=== PATIENT | female | born 1995 | race Caucasian/White ===

== ENCOUNTER 2019-10-27 13:36 | Outpatient (CLI) | payer OTHER, SELFPAY ==
--- NOTE | 2019-10-27 14:12 | DI.US.S_ITS ---
PROCEDURE: US OB LIMITED INDICATIONS: vaginal bleeding OUTSIDE/PRIOR DATING DATA: Last menstrual period (LMP): 03/04/2019. LMP-based estimated date of delivery (SURY): 12/09/2019. First dating scan (date and location): 10/27/2019. No prior exams. Estimated date of delivery (SURY) from first dating scan: Unknown. TECHNIQUE: Real-time scanning was performed of the fetus, with image documentation. COMPARISON: None. FINDINGS: A single living intrauterine gestation is present. Presentation: Vertex. Placenta: Placental position is fundal posterior, without previa. Amniotic fluid index: 17.6 cm, normal range is 5-24 cm. heart rate: 162 beats per minute. Maternal cervical canal: 4.7 cm long. Normal lower limit is 2.5 cm. Estimated gestational age from initial scan: 33 weeks 6 days. IMPRESSION: 1. Pinto living intrauterine at 33 weeks 6/7 days based on LMP. 2. Normal placenta and amniotic fluid. CHARMAINE 17.6 cm. 3. Normal cervix. Dictated by: Bobby Wright M.D. on 10/27/2019 at 17:01 Approved by: Bobby Wright M.D. on 10/27/2019 at 17:05
[2019-10-27 14:55] LABS: RBC Urine None Seen (0-5/HPF)
[2019-10-27 14:57] LABS: Appearance Urine UA CLEAR; Bilirubin Urine UA NEGATIVE (NEGATIVE); Color Urine UA YELLOW; Glucose Urine UA NEGATIVE (Negative); Ketones Urine UA NEGATIVE (NEGATIVE); Leukocyte Esterase Urine UA NEGATIVE (NEGATIVE); Nitrite Urine UA NEGATIVE (Negative); Occult Blood Urine UA NEGATIVE (Negative); Protein Urine UA NEGATIVE (Negative); Specific Gravity Urine UA <=1.005 (1.000-1.035); Urobilinogen Urine UA 0.2 E.U./dL (0.2)
[2019-10-27 15:22] LABS: Bacteria Urine Few (2-10); Culture Indicated Urine Cult Not Indicated; Squamous Epithelial Cell Urine 5-10 /HPF (0-5/HPF); WBC Urine 0-1/HPF (0-5/HPF)
--- NOTE | 2019-10-27 15:32 | PM.OBTRLD ---
Visit Information Visit Information Date of evaluation: 10/27/19 Primary OB Provider: Marcy Hein On-call OB Provider: Mary Weiss Reason for Evaluation: Yes other Comments/Additional reasons for admission: Patient is 33 weeks and noticed some dark red blood with wiping after using the bathroom this morning. Denies abdominal pain, contractions or leaking of fluid. Baby has been moving well. Last intercourse was reportedly a week ago. She has transferred care from the [facility] to Dr. Hein and has seen her once. No known placenta previa or other complications. Vital Signs Vital Signs: Temperature 36.4? blood pressure 102/59 heart rate 89 PFSH Medical History Frequent UTI (Acute) Heart murmur (Acute ~2019) Kidney infection (Acute) Family History Mother Mitral valve prolapse Grandfather Alcoholic Grandfather Alcoholic Sister Twin Social History marital status: education level: college (some college) occupational status: unemployed Smoking Status: Never smoker second hand exposure: No substance use type: does not use Objective Labs Labs: Laboratory Results - last 24 hr 10/27/19 14:30 Urine Color Yellow Urine Appearance Clear Urine pH 7.0 Ur Specific [place] <=1.005 Urine Protein Negative Urine Glucose (UA) Negative Urine Ketones Negative Urine Occult Blood Negative Urine Nitrate Negative Urine Bilirubin Negative Urine Urobilinogen 0.2 Ur Leukocyte Esterase Negative Urine RBC None seen Urine WBC 0-1/hpf Ur Squamous Epith Cells 5-10 /hpf H Urine Bacteria Few (2-10) H Ur Culture Indicated? Cult not indicated Evaluation Evaluation Baseline heart rate: 140 Variability: Moderate (11-25) monitor accelerations: Present monitor decelerations: Absent Category of Tracing: I Laboratory results: Laboratory Tests 10/27/19 14:30 Urine Color Yellow Urine Appearance Clear Urine pH 7.0 Ur Specific [place] <=1.005 Urine Protein Negative Urine Glucose (UA) Negative Urine Ketones Negative Urine Occult Blood Negative Urine Nitrate Negative Urine Bilirubin Negative Urine Urobilinogen 0.2 Ur Leukocyte Esterase Negative Urine RBC None seen Urine WBC 0-1/hpf Ur Squamous Epith Cells 5-10 /hpf H Urine Bacteria Few (2-10) H Ur Culture Indicated? Cult not indicated Diagnosis, Plan/Disposition Final Diagnosis (1) 33 weeks gestation of : Current Visit: No Status: Acute (2) Vaginal bleeding during , antepartum: Current Visit: No Status: Acute Plan/Disposition Plan: Patient is a 24 year old at 33+4 weeks with a small amount of dark vaginal bleeding with wiping this morning. She had a small amount with wiping again in the center after arrival. Last intercourse a week ago. NST reactive. US showed normal fluid, normal posterior placenta without previa or evidence to suggest abruption. UA negative. Patient denied abdominal pain or contractions and otherwise felt well. Placenta abruption felt unlikely. Patient was advised pelvic rest until she follows up in clinic. Also advised to return to the center immediately for increased bleeding. OB Disposition: home
== END 2019-10-27 15:44 | disposition home or self-care (01) ==
LOC: LABOR 15:22 → OB 10-30 09:55
PROVIDERS: Family Medicine; PCP Obstetrics & Gynecology; Visit Provider Obstetrics & Gynecology
DX: O46.93 Antepartum hemorrhage, unspecified, third trimester (principal); O36.8130 Decreased fetal movements, third trimester, not applicable or unspecified; Z3A.33 33 weeks gestation of pregnancy
CPT/HCPCS: 59025; 76815; 76830; 81001; G0378; G0379

== ENCOUNTER → 2019-11-07 07:14 | Outpatient (CLI) | payer OTHER, SELFPAY ==
[2019-11-07 08:42] LABS: Glucose Fasting Gestational 80 mg/dL (76-95)
[2019-11-07 10:08] LABS: Glucose 1 Hour Gest 137 mg/dL (76-180)
[2019-11-07 10:55] LABS: Glucose 2 Hour Gest 129 mg/dL (76-155)
[2019-11-07 10:56] LABS: Glucose Tol Interp,Gestational INTERPRETATION
[2019-11-07 11:50] LABS: Glucose 3 Hour Gest 102 mg/dL (76-140)
== END ==
PROVIDERS: PCP Obstetrics & Gynecology; Visit Provider Obstetrics & Gynecology
DX: Z34.03 Encounter for supervision of normal first pregnancy, third trimester (principal)
CPT/HCPCS: 36415; 82951; 82952

== ENCOUNTER → 2019-11-12 10:23 | Outpatient (CLI) | payer OTHER, SELFPAY ==
[2019-11-13 07:57] LABS: Strep Grp B PCR NEG for Grp B Strep
== END ==
PROVIDERS: PCP Obstetrics & Gynecology; Visit Provider Obstetrics & Gynecology
DX: Z34.03 Encounter for supervision of normal first pregnancy, third trimester (principal); Z3A.35 35 weeks gestation of pregnancy
CPT/HCPCS: 87653

== ENCOUNTER → 2019-12-12 08:01 | Outpatient (CLI) | payer OTHER, SELFPAY ==
--- NOTE | 2019-12-12 08:03 | DI.US.S_ITS ---
PROCEDURE: US OB BIOPHYSICAL PROFILE INDICATIONS: BPP OUTSIDE/PRIOR DATING DATA: Last menstrual period (LMP): 03/04/19. LMP-based estimated date of delivery (SURY): 12/09/19. First dating scan (date and location): This study. TECHNIQUE: Real-time scanning was performed of the fetus for biophysical profile, with image documentation. Color and pulse Doppler interrogation was also performed of the umbilical artery near its insertion into the placenta. Endovaginal scanning: Not needed COMPARISON: None. FINDINGS: General: A single living intrauterine gestation is present. Presentation: Vertex Placenta: Placental position is fundal, without previa. Amniotic fluid index: 16.0 cm, normal range is 5-24 cm. heart rate: 133 beats per minute. Estimated gestational age from LMP: The 40 weeks 3 days. Biophysical profile: 8 of 8 possible points Tone: 2 points. Movement: 2 points. Respiration: 2 points. Largest pocket of fluid: 2 points. IMPRESSION: Biophysical profile 8 of 8 possible points. Term gestation. Fundal placenta, vertex presentation. Amniotic fluid volume currently is normal. Dictated by: Cliff Contreras M.D. on 12/12/2019 at 10:29 Approved by: Cliff Contreras M.D. on 12/12/2019 at 10:45
== END ==
PROVIDERS: Referring Provider Obstetrics & Gynecology; Visit Provider Obstetrics & Gynecology
DX: Z34.03 Encounter for supervision of normal first pregnancy, third trimester (principal); Z3A.40 40 weeks gestation of pregnancy
CPT/HCPCS: 76819

== ENCOUNTER 2019-12-15 21:53 | Outpatient (CLI) | payer OTHER, SELFPAY ==
--- NOTE | 2019-12-16 08:58 | P.TNLD_ITS ---
Visit Information Visit Information Date of evaluation: 12/15/19 Primary OB Provider: Marcy Hein Reason for Evaluation: Yes rule out labor Comments/Additional reasons for admission: Patient is a 24yo @40+4 repo rting contractions q3, scant brown mucus, no LOF, copious movement. Patient has had an otherwise uncomplicated . Vital Signs Vital Signs: 106/65, HR 80 PFSH Medical History Chicken pox (Resolved ~1998) Frequent UTI (Acute ~2013) Heart murmur (Acute ~2018) Kidney infection (Acute) Family History Mother Mitral valve prolapse Grandfather Alcoholic Grandfather Alcoholic Sister Twin Social History marital status: education level: college occupational status: unemployed Smoking Status: Never smoker second hand exposure: No substance use type: does not use Review of Systems Constitutional Constitutional: Reports system reviewed and no additional complaints, except as documented Genitourinary Genitourinary: Reports as per HPI Evaluation Evaluation Baseline heart rate: 130 Variability: Average (6-10) monitor accelerations: Present monitor decelerations: Early Uterine Contraction Intensity: Moderate Category of Tracing: I Cervical dilation (cm): 0 Cervical effacement (%): 50 Diagnosis, Plan/Disposition Plan/Disposition Plan: Patient in latent labor, discharged home with reassuring status and precautions. Patient to keep scheduled appointment in AM. OB Disposition: home
== END 2019-12-15 22:55 | disposition home or self-care (01) ==
LOC: LABOR 23:03 → OB 12-16 08:18
PROVIDERS: Referring Provider Obstetrics & Gynecology; Visit Provider Obstetrics & Gynecology
DX: O48.0 Post-term pregnancy (principal); Z3A.40 40 weeks gestation of pregnancy
CPT/HCPCS: 59025; G0378; G0379

== ENCOUNTER 2019-12-16 19:05 | Inpatient (IN) | payer OTHER, SELFPAY ==
[2019-12-16 20:49] VITALS: BP 112/61
[2019-12-16] MEDS: DINOPROSTONE VAG (CERVIDIL) 10 MG VAG (21:06)
[2019-12-16 21:13] LABS: Add Manual Diff / Slide Review NO; Basophils Absolute Auto 100 /uL (0-100); Basophils Percent Auto 0.6 % (0-2); Eosinophils Absolute Auto 100 /uL (0-450); Hemoglobin 12.3 g/dL (12.0-16.0); Lymphocytes Absolute Auto 1600 /uL (1100-4500); Lymphocytes Percent Auto 15.2 % (25-40); Mean Corpuscular Volume 94.2 fL (80-100); Monocytes Absolute Auto 900 /uL (0-900); Monocytes Percent Auto 8.8 % (3-14); Neutrophils Absolute Auto 7800 /uL (1500-7000); Neutrophils Percent Auto 74.4 % (50-75); Platelet Count 285 X10^3/uL (150-400); Red Blood Cell Count 3.72 X10^6/uL (4.0-5.2); Red Cell Distribution Width 14.2 % (11.6-14.8); White Blood Cell Count 10.4 X10^3/uL (4.5-11.0)
[2019-12-16] MEDS: MORPHINE 10 MG/ML INJ IM (23:25)
[2019-12-17] MEDS: ZOLPIDEM 5 MG TABLET PO (01:26)
--- NOTE | 2019-12-17 08:28 | PM.OBHP.1 ---
OB HPI Date/Time Date of admission: 12/16/19 Date Patient Seen: 12/17/19 Time Patient Seen: 08:20 History of Present Condition Chief complaint: Obs : 1 Para: 0 Estimated Date of Delivery: 12/17/19 Estimated Gestational Age (weeks): 40 Narrative: Neha Courtney is a 24 year old @40+5 on admission, now 40+6 admitted for postdates induction in the setting of several days of latent labor. The patient reports that she has been debbie q3-5 for several days, with occasional scant brown discharge but no flores VB, no LOF, good movement, and no other symptoms obstetrical or otherwise. She has had a complicated by late transfer of care from the [employer] and by an unexplained vaginal bleed at 34 weeks. She is otherwise healthy with no contributory agricultural engineering technician, medical, or surgical history. She reports that she broke her water and was leaking clear fluid at approx 4AM, and had a cervidil overnight until its spontaneous expulsion at approx 4 AM. Indications Indication for induction OB: post dates History of Present care: good care, number of visits (14 visits) and pounds weight gain (35) Dating criteria: LMP confirmed by 1st trimester US Ultrasounds: normal mid trimester US Obstetrical complications: none Medical complications: none Preadmission Labs Blood type: O (+) positive -: Antibody screen: negative, Cystic fibrosis screen: positive (FOB tested and negative), GBS status: negative, HBsAG: negative, HIV: negative and RPR/VDLR: negative -: Chlamydia screen: not detected and Gonorrhea screen: not detected -: Rubella: immune and Varicella: immune Integrated screen: negative/negative Narrative: Passed 3 hr GTT Evaluation Evaluation Baseline heart rate: 130 Variability: Moderate (11-25) monitor accelerations: Present monitor decelerations: Absent Cervical dilation (cm): 3 Cervical effacement (%): 90 station: -1 Laboratory results: Laboratory Tests 12/16/19 12/16/19 20:15 20:15 WBC 10.4 RBC 3.72 L Hgb 12.3 Hct 35.0 L MCV 94.2 MCH 33.0 MCHC 35.0 RDW 14.2 Plt Count 285 Neut % (Auto) 74.4 Lymph % (Auto) 15.2 L [place] % (Auto) 8.8 Eos % (Auto) 1.0 L Baso % (Auto) 0.6 Neut # (Auto) 7800 H Lymph # (Auto) 1600 [place] # (Auto) 900 Eos # (Auto) 100 Baso # (Auto) 100 Blood Type O Positive Antibody Screen Negative [facility] Medical History Chicken pox (Resolved ~1998) Frequent UTI (Acute ~2013) Heart murmur (Acute ~2018) Kidney infection (Acute) Family History Mother Mitral valve prolapse Grandfather Alcoholic Grandfather Alcoholic Sister Twin Social History marital status: education level: college occupational status: unemployed Smoking Status: Never smoker second hand exposure: No substance use type: does not use Meds Home Medications and Allergies Home Medications Medication Instructions Recorded Confirmed Type prenat.vits,olga,[id number] 1 tab PO DAILY 10/21/19 12/16/19 History Allergies Allergy/AdvReac Type Severity Reaction Status Date / Time Latex, Natural Rubber Allergy Severe Rash and Verified 10/21/19 08:52 Burning to mucosa Sulfa (Sulfonamide Allergy Severe Migraines Verified 10/21/19 08:51 Antibiotics) and full body rashes Review of Systems Constitutional Constitutional: Reports system reviewed and no additional complaints, except as documented Cardiovascular Cardiovascular: Reports system reviewed; no additional complaints, except as documented Respiratory Respiratory: Reports system reviewed and no additional complaints, except as documented Gastrointestinal Gastrointestinal: Reports system reviewed and no additional complaints, except as documented Genitourinary Genitourinary: Reports system reviewed and no additional complaints, except as documented Exam Vital Signs (past 8 hours): 112/61, HR 88, afebrile Const General: cooperative, healthy appearing, comfortable and other (breathing through regular contractions) Resp Effort & Inspection: normal respiratory effort Auscultation: clear to auscultation bilaterally Cardio Rate: regular rate Rhythm: regular rhythm GI Palpation: soft External Female Exam: external appearance normal and other (leaking clear amniotic fluid) Other: cervical exam deferred until after epidural Objective Labs Result Diagrams: 12/16/19 20:15 Labs: Laboratory Results - last 24 hr 12/16/19 12/16/19 20:15 20:15 WBC 10.4 RBC 3.72 L Hgb 12.3 Hct 35.0 L MCV 94.2 MCH 33.0 MCHC 35.0 RDW 14.2 Plt Count 285 Neut % (Auto) 74.4 Lymph % (Auto) 15.2 L [place] % (Auto) 8.8 Eos % (Auto) 1.0 L Baso % (Auto) 0.6 Neut # (Auto) 7800 H Lymph # (Auto) 1600 [place] # (Auto) 900 Eos # (Auto) 100 Baso # (Auto) 100 Blood Type O Positive Antibody Screen Negative Assessment and Plan Assessment and Plan Assessment and Plan narrative: This patient presented for cervical ripening overnight, and is having regular contractions, though spaced. She will receive an epidural shortly, and then be started on low dose pitocin per protocol. Anticipate vaginal delivery. Reassuring and maternal status. -continues montoring, toco - VS per protocol
--- NOTE | 2019-12-17 09:36 | PM.AN.REGBLK ---
Regional Block Pre-procedure Procedure: Continuous Lumbar Epidural for L&D Attending OB provider: Marcy HOWELL/CHANTEL narrative: term labor, no complications Hx: No personal or family history of anesthesia problems. ASA Class: II Labs: Hct 35.0 % (36-46) L 12/16/19 20:15 Plt Count 285 X10^3/uL (150-400) 12/16/19 20:15 Medications: Current Medications Generic Name Dose Route Start Last Admin Trade Name Freq PRN Reason Stop Dose Admin Lactated Ringer's 1,000 mls @ 100 mls/hr 12/16/19 19:15 Lactated Ringers IV CONT YE Lactated Ringer's 1,000 mls @ 100 mls/hr 12/17/19 08:30 Lactated Ringers IV CONT YE Oxytocin/Lactated Ringer's 30 unit in 500 mls @ 1 mls/hr 12/17/19 08:30 Oxytocin Premix IV TITRATE [facility] Protocol 1 MILLIUNIT/MIN Metoclopramide HCl 10 mg 12/17/19 08:28 Reglan IV NOW PRN Nausea And Vomiting Ondansetron HCl 4 mg 12/16/19 21:41 Zofran IV Q6HR PRN Nausea And Vomiting Zolpidem Tartrate 5 mg 12/16/19 19:14 12/17/19 01:26 Ambien PO 5 mg BEDTIME PRN Administration Sleep Allergies: Allergies Allergy/AdvReac Type Severity Reaction Status Date / Time Latex, Natural Rubber Allergy Severe Rash and Verified 10/21/19 08:52 Burning to mucosa Sulfa (Sulfonamide Allergy Severe Migraines Verified 10/21/19 08:51 Antibiotics) and full body rashes Procedure Insertion date: 12/17/19 Insertion time: 08:40 Interspace: L2-3 Patient position: sitting Needle: 18 gauge Hustead (27g Pencan through Hustead for CSE. Clear CSF, 1mL 0.25% bupiv MPF) Loss of resistance with: saline MICHA at (cm): 3 Catheter placed at SKIN (cm): 9 Catheter in SPACE (cm): 6 Initial Medications TEST DOSE time: 08:41 TEST DOSE: 1.5% lidocaine with epinephrine 1:200k (mL): 3 BOLUS DOSE med: 0.125% bupivacaine with fentanyl 10 mcg/mL Infusion INFUSION: 0.125% bupivacaine and with fentanyl 2 mcg/mL Initial rate (mL/hr): 8 Post-procedure Anesthesia time START: 08:31 Anesthesia time END: 11:25 Post-procedure Anesthesia Assessment: Yes CV function: HR/BP stable, Yes Resp function: RR/sat/airway adequate, Yes Pain control adequate and Yes Nausea & vomiting absent
[2019-12-17] MEDS: LACTATED RINGERS 1,000 ML 100 ML IV (09:40)
[2019-12-17] MEDS: FENT 2MCG/ML BUPIV 0.125% EPI 200 MCG/100 ML PLAST..BAG 8 MCG EPIDURAL (09:40)
[2019-12-17] MEDS: OXYTOCIN PREMIX 30 UNIT/500 ML PLAST..BAG IV (09:48)
[2019-12-17] MEDS: METHYLERGONOVINE 0.2 MG/ML VIAL IM (11:42)
--- NOTE | 2019-12-17 11:58 | PM.OBPRVD ---
Labor & Delivery Delivery date: 12/17/19 Intrapartal events: Acceleration and Deceleration Cervical ripening method: per Cervidil protocol Induction method: per pitocin protocol Delivery monitor: external FHT and external uterine Route of delivery: L&D Laceration Description: Periurethral - 1st Degree and Perineal - 2nd Degree Delivery repair: vicryl Estimated blood loss (mL): 400 Anesthesia type: Epidural Narrative: This patient is a 24yo now P1 who presented for postdates induction in latent labor. She underwent cervidil induction for approximated 6 hours before the cervidil fell out, and she was found to be 3/90/-1 and to have broken her water for clear fluid at approx. 4 AM. She received an epidural and was augmented with pitocin, and progressed rapidly to fully dilated. After an approx. 30 minute 2nd stage, she was delivered of a healthy baby boy from the YANELY position, shoulders delivered with ease, apgars 9+9, weight 9lbs 4oz. The placenta delivered spontaneously with gentle traction. She was noted to have mild uterine atony, and received 30mU of pitocin in NS and 0.2mg methergine IM with resolution of the atony. A 2nd degree perineal laceration was repaired with 3-0 vicryl in the usual fashion, and a 1st degree left periuretheral laceration was spontaneously hemostatic. Baby had a reassuring EFM throughuot labor, and there were no intrapartum or immediate complications. [place] Baby Jeremy: Infant gender: Male Presentation: vertex position: Right Occiput Anterior (Direct OA) Placenta delivery description: Spontaneous cord vessel description: 3 Vessels score (1 min): 9 score (5 min): 9 Narrative: 9#4 Plan for aftercare: Routine care
[2019-12-17] MEDS: IBUPROFEN 600 MG TABLET PO ×2 (16:57→22:59)
[2019-12-17] MEDS: DERMOPLAST SPRAY 20% 60 ML 1 SPRAY TOP (17:30)
[2019-12-17] MEDS: LANOLIN OINT 7 GM 1 APPLIC TOP (17:31)
[2019-12-18] MEDS: IBUPROFEN 600 MG TABLET PO (05:07)
--- NOTE | 2019-12-18 08:23 | PM.OBPN.1 ---
Subjective - OB Subjective Patient comments: no complaints, pain well controlled, tolerating diet and flatus present baby status: doing well and nursing well Narrative: This patient is a 24yo now P1 PPD#1 s/p uncomplicated after IOL for postdates in the setting of latent labor. She reports feeling well this AM with minimal pain, moderate lochia, ambulating, tolerating PO, voiding, and passing flatus. She has no other complaints obstetrical or otherwise. Date Patient Seen: 12/18/19 Time Patient Seen: 08:25 Exam Vital Signs (past 8 hours): 94/61, HR 76, T 97.7F Const General: cooperative, healthy appearing and comfortable Resp Effort & Inspection: normal respiratory effort Auscultation: clear to auscultation bilaterally Cardio Rate: regular rate Rhythm: regular rhythm GI Palpation: soft and No tender Other: Fundus firm, well below u External Female Exam: external appearance normal and exteral laceration (sutures intact, no erythema or drainage) Skin General: no rashes or lesions noted Objective Labs Result Diagrams: 12/16/19 20:15 Assessment & Plan Plan day: 1 plan OB: routine care and discharge home Comments: Patient is meeting goals well, and is stable for discharge. precautions were discussed, and all questions were answered. I encouraged the patient to call or come in with any questions or concerns. Time Spent With Patient Time: Total time spent is greater than 50% in coordination of care (as documented) at patient's floor/unit and/or counseling patient: Time with patient: 15-24 minutes
--- NOTE | 2019-12-18 08:31 | PM.OBDS.1 ---
Discharge Providers Provider Date of admission: 12/16/19 19:05 Discharge Date: 12/18/19 Consults: 12/18/19 11:56 Consult to Lead Python Developer Routine Comment: Discharge provider: Marcy Hein MD Summary Hospital Course Date Patient Seen: 12/18/19 Time Patient Seen: 08:31 Procedures: Induction of labor with cervidil and pitocin, spontaneous vaginal delivery. Hospital Course: This patient presented at 40+5 for induction of labor in the setting of latent labor. She had a cervidil for 6 hours, underwent SROM, was augmented with pitocin, and progressed to fully dilated. After a short 2nd stage, she delivered a healthy baby boy, apgars 9+9, weight 9lbs 4oz. A small 2nd degree perineal laceration was repaired in the usual fashion with 3-0 vicryl, and the patient received 30mU of pitocin and 0.2mg IM methergine for uterine atony, which resolved shortly after treatment with a total EBL of 400ccs. The patient's recovery was otherwise uncomplicated, and she was discharged on PPD#1 with routine precautions. Peripartum Data Delivery Method: Natural Vaginal Laceration description: Periurethral - 1st Degree complications: none [place] Jeremy: Gender: Male Disposition of : home Discharge Diagnosis (1) Vaginal delivery: Status: Acute Status at Discharge Cognitive/behavioral status at discharge: oriented Functional status at discharge: independent ambulation Overall status at discharge: patient is progressing back to baseline Time Spent with Patient Time attestation: Total time spent providing and/or coordinating discharge services: Time spent: Greater than 30 minutes Objective Labs Result Diagrams: 12/16/19 20:15 Discharge Plan Discharge Plan Patient Disposition: Home Discharge orders & Medications Prescriptions: New ibuprofen 600 mg tablet 600 mg PO Q8H PRN (Reason: pain (scale score 4-6)) Qty: 20 RF: 0 Continued prenat.vits,olga,[id number] Tablet 1 tab PO DAILY RF: 0 Follow up/Referrals: Marcy Hein MD [Physician] - 6 Weeks (postop check) Diet/Activity/Treatments Diet: Regular Activity: Nothing in the vagina for 6 weeks. Avoid heavy lifting for 6 weeks. If you have increasing bleeding, fevers, chills, pain, headaches, visual changes, dizziness, chest pain or trouble breathing, anxiety or depression symptoms, or any other symptoms or concerns, call the office or come to the emergency room. Skin/Wound/Dressing Care Report to your healthcare provider any signs of infection, such as:: chills, fever, night sweats, increased pain, unusual drainage and unusual redness Visit Report/Discharge Packet Instructions: DI for Labor and Delivery, Vaginal
[2019-12-18 13:13] VITALS: BP 102/59; PULSE 84; RESP 17; TEMP 36.4
== END 2019-12-18 16:53 | disposition home or self-care (01) | DRG 807 ==
PROVIDERS: Admitting Provider Obstetrics & Gynecology; Referring Provider Obstetrics & Gynecology; Visit Provider Obstetrics & Gynecology
DX: O48.0 Post-term pregnancy (principal); Z37.0 Single live birth; Z3A.40 40 weeks gestation of pregnancy; O71.82 Other specified trauma to perineum and vulva; O70.1 Second degree perineal laceration during delivery; O75.89 Other specified complications of labor and delivery
CPT/HCPCS: 01967; 59050; 59410; 85025; 86850; 86900; 86901; G0379; J2210; J2270; J2590

== ENCOUNTER → 2020-10-11 15:23 | Outpatient (CLI) | payer OTHER, SELFPAY ==
[2020-10-11 20:43] LABS: Urine N gonorrhoeae NOT DETECTED
[2020-10-11 20:45] LABS: Urine Chlamydia NOT DETECTED
== END ==
PROVIDERS: Visit Provider Obstetrics & Gynecology
DX: Z34.81 Encounter for supervision of other normal pregnancy, first trimester (principal); Z11.3 Encounter for screening for infections with a predominantly sexual mode of transmission; Z3A.08 8 weeks gestation of pregnancy
CPT/HCPCS: 87491; 87591

== ENCOUNTER → 2020-11-08 14:39 | Outpatient (CLI) | payer OTHER, SELFPAY ==
--- NOTE | 2020-11-08 14:41 | DI.ECHO.S_ITS ---
[place]---------[facility] +---------+ : : [address] : : : : [id number] : : : : Phone: [phone] Echocardiogram Report + + :Name: CLAUDE JACKSON Study Date: 11/08/2020 Height: 65 in : :[facility] ReadingLocation: Weight: 135 lb : : Gender: Female BSA: 1.7 m2 : :: 1995 Age: 25 yrs BP: 103/65 mmHg: :Reason For Study: PALPITATIONS IN : :Ordering Physician: CANDACE, : :KIERA Performed By: Imelda Leyva : :Referring: KIERA MARIA : + + Interpretation Summary Normal left ventricle size with ejection fraction 45-50%. There is a mild dyssynchronous contraction pattern, consistent with a conduction abnormality. Mildly dilated left atrium. Anterior mitral valve leaflet prolapse. Mild mitral regurgitation, eccentric jet directed posteriorly. Procedure: A two-dimensional transthoracic echocardiogram with color flow and Doppler was performed. The study quality was technically adequate. There is no prior echocardiogram noted for this patient. The patient had occasional PVCs during the exam. The heart rate ranged between 61-85 bpm during the study. Left Ventricle: The left ventricle is normal in size and wall thickness. The ejection fraction is estimated to be 45-50%. There is a mild dyssynchronous contraction pattern, consistent with a conduction abnormality. Diastolic parameters suggest probable normal left ventricular diastolic function and normal filling pressures. Right Ventricle: The right ventricle is normal in size and function. Atria: The left atrium is mildly dilated. Right atrial size is normal. There is no Doppler evidence for an interatrial shunt. Mitral Valve: There is prolapse of the anterior mitral valve leaflet. There is mild mitral regurgitation. There is an eccentric jet of mitral regurgitation that is directed posteriorly. Aortic Valve: The aortic valve is trileaflet. The aortic valve opens well. There is no aortic valve stenosis. No aortic regurgitation is present. Tricuspid Valve: The tricuspid valve is normal in structure and function. Pulmonary artery pressures cannot be estimated because of the lack of a measurable TR jet velocity but the IVC suggests a CVP of around 3 mmHg. There is trace tricuspid regurgitation. Pulmonic Valve: The pulmonic valve leaflets are thin and pliable; valve motion is normal. There is trace pulmonic regurgitation. Great Vessels: The aortic root is normal size. The dimensions of the ascending aorta are normal. The IVC is of normal diameter and collapses greater than 50% with a sniff. This suggests a low right atrial pressure of 3 mm Hg. Pericardium/ Pleura There is no pericardial effusion. There is no pleural effusion. MMode/2D Measurements & Calculations LVIDd: 5.3 cm LVOT diam: 2.4 cm LVIDs: 3.9 cm Ao root diam: 3.0 cm FS: 26.4 % asc Aorta Diam: 2.5 cm EPSS: 0.34 cm Ao Arch Diam (Prox Trans): 2.5 cm IVSd: 0.83 cm LVPWd: 0.90 cm LV mane. diameter/BSA (cm/m^2): 3.2 LV sys. diameter/BSA (cm/m^2): 2.3 LA A2 area: 22.4 cm2 RA long axis: 4.1 cm LA A4 area: 19.7 cm2 RA area: 11.3 cm2 LA length (vol): 4.4 cm RA vol: 26.2 ml LA vol: 85.7 ml RA : 15.7 ml/m2 LA vol index: 51.2 ml/m2 IVC diam: 1.6 cm RVD1 (basal): 3.3 cm TAPSE: 2.2 cm Doppler Measurements & Calculations Ao V2 max: 94.6 cm/sec LVOT Max Simba: 74.1 cm/sec Ao V2 mean: 65.7 cm/sec LV V1 max P.2 mmHg Ao max P.6 mmHg LV V1 VTI: 14.8 cm Ao mean P.9 mmHg ANA MARÍA(I,D): 4.1 cm2 Ao V2 VTI: 16.7 cm ANA MARÍA(V,D): 3.6 cm2 sev ratio: 0.88 ANA MARÍA indexed to BSA (cm^2/m^2): 2.4 MV E max simba: 66.1 cm/sec PA V2 max: 61.9 cm/sec MV A max simba: 45.1 cm/sec PA V2 mean: 43.2 cm/sec MV E/A: 1.5 PA mean P.84 mmHg Med Peak E' Simba: 11.5 cm/sec PA pr(Accel): 19.1 mmHg E/E' med: 5.8 Lat Peak E' Simba: 12.6 cm/sec E/E' lat: 5.2 E/e' average: 5.5 MV dec time: 0.19 sec SV(LVOT): 68.0 ml Electronically signed by: Ashley Funes on [place] Physician:11/08/2020 04:39 PM
[2020-11-08 18:17] LABS: Add Manual Diff / Slide Review NO; Basophils Absolute Auto 0 /uL (0-100); Basophils Percent Auto 0.5 % (0-2); Eosinophils Absolute Auto 100 /uL (0-450); Hematocrit 37.2 % (36-46); Hemoglobin 12.8 g/dL (12.0-16.0); Lymphocytes Absolute Auto 2100 /uL (1100-4500); Lymphocytes Percent Auto 27.5 % (25-40); Mean Corpuscular HGB Conc 34.3 % (30-36); Mean Corpuscular Hemoglobin 30.9 PG (26-34); Mean Corpuscular Volume 90.2 fL (80-100); Monocytes Absolute Auto 400 /uL (0-900); Monocytes Percent Auto 5.4 % (3-14); Neutrophils Absolute Auto 5100 /uL (1500-7000); Neutrophils Percent Auto 65.6 % (50-75); Platelet Count 341 X10^3/uL (150-400); Red Blood Cell Count 4.13 X10^6/uL (4.0-5.2); Red Cell Distribution Width 12.6 % (11.6-14.8); White Blood Cell Count 7.7 X10^3/uL (4.5-11.0)
[2020-11-08 18:40] LABS: Appearance Urine UA CLEAR; Bilirubin Urine UA NEGATIVE (NEGATIVE); Color Urine UA YELLOW; Glucose Urine UA NEGATIVE (Negative); Ketones Urine UA TRACE (NEGATIVE); Leukocyte Esterase Urine UA TRACE (NEGATIVE); Nitrite Urine UA NEGATIVE (Negative); Occult Blood Urine UA TRACE-LYSED (Negative); Protein Urine UA NEGATIVE (Negative); Specific Gravity Urine UA >=1.030 (1.000-1.035); Urobilinogen Urine UA 0.2 E.U./dL (0.2)
[2020-11-08 18:51] LABS: pH Urine UA 5.5 (4.5-8.0)
[2020-11-08 19:00] LABS: Bacteria Urine Few (2-10); Mucus Urine 2+ (Negative); RBC Urine 0-1/HPF (0-5/HPF); Squamous Epithelial Cell Urine 10-30 /HPF (0-5/HPF); Transitional Epi Cells Urine 1-5/HPF (0-5/HPF); WBC Urine 5-10/HPF (0-5/HPF)
[2020-11-08 19:18] LABS: Hepatitis B Surface Antigen NEGATIVE s/c (NEGATIVE); Rubella Antibody IgG 10.1 IU/mL (>15)
[2020-11-08 19:44] LABS: HIV 1 & 2 Ab/Ag 4th Gen Combo NEGATIVE (NEGATIVE); Hep C Virus Ab w/Reflex Quant NEGATIVE s/c (NEGATIVE)
[2020-11-09 06:13] LABS: Varicella IgG Antibody 2298 index (Immune >165)
[2020-11-09 08:12] LABS: RPR Screen Non Reactive (Non Reactive)
== END ==
PROVIDERS: PCP Nurse Practitioner Family; Referring Provider Obstetrics & Gynecology; Visit Provider Obstetrics & Gynecology
DX: Z36.0 Encounter for antenatal screening for chromosomal anomalies (principal); O99.411 Diseases of the circulatory system complicating pregnancy, first trimester; I34.0 Nonrheumatic mitral (valve) insufficiency; Z3A.12 12 weeks gestation of pregnancy; Z82.49 Family history of ischemic heart disease and other diseases of the circulatory system
CPT/HCPCS: 36415; 80055; 81003; 81015; 84163; 85025; 86592; 86762; 86787; 86803; 86850; 86900; 86901; 87086; 87340; 87389; 93306

== ENCOUNTER → 2020-12-29 10:49 | Outpatient (CLI) | payer OTHER, SELFPAY ==
--- NOTE | 2020-12-29 10:50 | DI.US.S_ITS ---
PROCEDURE: US OB >= 14 WEEKS FETUS INDICATIONS: ANATOMY OUTSIDE/PRIOR DATING DATA: Last menstrual period (LMP): Unknown . LMP-based estimated date of delivery (SURY): Unknown . First dating scan (date and location): 10/11/20 . Estimated date of delivery (SURY) from first dating scan: 05/12/21 . TECHNIQUE: Real-time scanning was performed of the fetus, with image documentation and biometric measurements. Endovaginal scanning: Not performed COMPARISON: [facility], OB <= 14 WEEKS FETUS, 10/11/2020, 12:19. [facility], OB >= 14 WEEKS FETUS, 12/16/2019, 8:36. FINDINGS: General: A single living intrauterine gestation is present. Presentation: Vertex. Placenta: Placental position is posterior , without previa. Amniotic fluid index: 15.8 cm, normal range is 5-24 cm. heart rate: 140 beats per minute. Maternal cervical canal: 4.2 cm long. Normal lower limit is 2.5 cm. biometrics: Biparietal diameter: 4.9 cm, 20 weeks 6 days Head circumference: 17.9 cm, 20 weeks 2 days Abdominal circumference: 15.4 cm, 20 weeks 4 days Femur length: 3.2 cm, 20 weeks 0 days Estimated gestational age from initial scan: 20 weeks 6 days Composite gestational age from present scan: 20 weeks 3 days Estimated weight and percentile: 349 g, 21st percentile Measurement variability for biometric dating: +/- 7 days from 14 weeks to 15 weeks 6 days gestation, +/- 10 days from 16 weeks to 21 weeks 6 days gestation, +/- 2 weeks from 22 weeks to 27 weeks 6 days gestation, +/- 3 weeks for 28 weeks gestation or later. weight reference: 4500 g or EFW >90/95% is considered macrosomia or large for gestational age. EFW <10% is small for gestational age. EFW 5% or less is considered intra-uterine growth restriction. Anatomic survey: Neuro: Ventricles are non-dilated at less than 10 mm. Cisterna magna is normal at 3-11 mm. Cerebellum is normal in size and morphology. Nuchal skin fold: Normal at less than 6 mm between 14-21 weeks gestational age. Face: Nose and lips, facial profile are normal. Spine: No evidence for spina bifida. Heart: 4-chambered heart is present, with normal ventricular outflow tracts. Diaphragm: Diaphragm is intact. Stomach: Left-sided stomach is present. Kidneys: No hydronephrosis. Normal is less than 5 mm in 2nd trimester, less than 7 mm in 3rd trimester. Cord: 3-vessel cord has orthotopic insertion. Bladder: Normal in size. Extremities: All 4 extremities identified. IMPRESSION: Single living intrauterine fetus in vertex presentation Normal anatomic survey Expected interval growth as above Dictated by: Cheng Pederson M.D. on 12/29/2020 at 14:37 Approved by: Cheng Pederson M.D. on 12/29/2020 at 14:40
== END ==
PROVIDERS: PCP Nurse Practitioner Family; Referring Provider Obstetrics & Gynecology; Visit Provider Obstetrics & Gynecology
DX: Z34.92 Encounter for supervision of normal pregnancy, unspecified, second trimester (principal); Z3A.20 20 weeks gestation of pregnancy
CPT/HCPCS: 76811

== ENCOUNTER 2021-01-13 12:47 | Observation (INO) | payer OTHER, SELFPAY ==
--- NOTE | 2021-01-13 13:22 | DI.US.S_ITS ---
PROCEDURE: US OB LIMITED INDICATIONS: BLEEDING OUTSIDE/PRIOR DATING DATA: Last menstrual period (LMP): Not available. LMP-based estimated date of delivery (SURY): Not available . First dating scan (date and location): 10/11/20 . Estimated date of delivery (SURY) from first dating scan: 05/12/21 . TECHNIQUE: Real-time scanning was performed of the fetus, with image documentation. Endovaginal scanning: Not needed COMPARISON: [facility], OB LIMITED, 10/27/2019, 15:16. FINDINGS: A single living intrauterine gestation is present. Presentation: Vertex. Placenta: Placental position is posterior , without previa. Amniotic fluid index: 14.4 cm, normal range is 5-24 cm. heart rate: 140 beats per minute. Maternal cervical canal: 3.8 cm long. Normal lower limit is 2.5 cm. Estimated gestational age from initial scan: 23 weeks 0 days . No evidence of abruption or placenta previa. IMPRESSION: Source of bleeding not seen. Dictated by: Cliff Contreras M.D. on 01/13/2021 at 14:19 Approved by: Cliff Contreras M.D. on 01/13/2021 at 14:21
[2021-01-13 13:57] LABS: RBC Urine None Seen (0-5/HPF)
[2021-01-13 13:58] LABS: Appearance Urine UA CLEAR; Bilirubin Urine UA NEGATIVE (NEGATIVE); Color Urine UA YELLOW; Glucose Urine UA NEGATIVE (Negative); Ketones Urine UA NEGATIVE (NEGATIVE); Leukocyte Esterase Urine UA TRACE (NEGATIVE); Nitrite Urine UA NEGATIVE (Negative); Occult Blood Urine UA NEGATIVE (Negative); Protein Urine UA NEGATIVE (Negative); Specific Gravity Urine UA 1.015 (1.000-1.035); Urobilinogen Urine UA 0.2 E.U./dL (0.2)
--- NOTE | 2021-01-13 13:59 | P.TNLD_ITS ---
Visit Information Visit Information Date of evaluation: 01/13/21 Primary OB Provider: Marcy Hein Reason for Evaluation: Yes rule out labor Comments/Additional reasons for admission: This patient is a 25-year-old para 1 at 22 weeks gestation presenting due to 2 episodes of blood on wiping after urinating this morning, and mild cramping that has now resolved. The patient reports good movement, has no upper abdominal tenderness or pain, has no vaginal bleeding evident on underwear or wiping except after urination. Has not had recent intercourse, has not had abdominal trauma, has a posterior placenta without previa, has not had the patient or straining with bowel movements. Cramping is suprapubic in intermittent. No systemic symptoms. has been obstetrically uncomplicated, the patient has had cardiac symptoms and recently saw cardiology after a 2 month delay. Vital Signs Vital Signs: Vital signs within normal limits, did not archived. [facility] Medical History (Updated 10/01/20 @ 10:11 by Yue Dorman RN) Chicken pox (~1998) Frequent UTI (~2013) Heart murmur (~2018) Kidney infection Vaginal bleeding during , antepartum Vaginal delivery (~12/17/19) Surgical History (Updated 10/01/20 @ 10:12 by Yue Dorman RN) H/O wisdom tooth extraction (~09/30/20) Family History (Updated 10/01/20 @ 10:39 by Yeu Dorman RN) Mother Mitral valve prolapse Left ventricular cardiac abnormality Grandfather Alcoholic Grandfather Alcoholic Sister Twin Father No problems noted. Grandmother Hypertension Grandmother No problems noted. 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.) current occupational exposures/hazards: No special elicia needs: No seatbelt use: always Smoking Status: Never smoker second hand exposure: No alcohol intake: former (Non : 1 glass wine about 3 times a week.) substance use type: does not use during the past year weight has: decreased > 10 lbs ( ) well-balanced diet: daily or most days caffeine: No Type(s) of exercise: walking (Normally 3 miles a day walking, not with cold/rainy weather.) Review of Systems Constitutional Constitutional: Reports system reviewed and no additional complaints, except as documented Gastrointestinal Gastrointestinal: Reports as per HPI Genitourinary Genitourinary: Reports as per HPI Exam Const General: cooperative, healthy appearing, comfortable and acute distress GI Palpation: soft and No tender External Female Exam: normal external appearance Speculum Exam - Vagina: normal appearance of the vagina and normal vaginal discharge (Normal appearing, white cervical mucus, long and closed appearing c ervix.) Speculum Exam - Cervix: normal appearance of the cervix Bimanual Exam- Vagina & Uterus: other (Gentle bimanual exam shows long, closed, firm, posterior cervix) Evaluation Evaluation Baseline heart rate: 135 Variability: Moderate (11-25) monitor accelerations: Absent (Appropriate for gestational age) monitor decelerations: Absent Status: Category l Cervical dilation (cm): 0 Cervical effacement (%): 0 station: -4 Comments: Rare contractions on admission, resolved for 1 hour at time of evaluation Diagnosis, Plan/Disposition Plan/Disposition Plan: This patient presents for evaluation for bleeding after urination x2. The patient has a UA concerning for urinary tract infection, does not have ongoing vaginal bleeding, has a long closed cervix, white cervical mucus, and reassuring ultrasound. Precautions for return were discussed, the patient is advised to rest and complete her antibiotic course. Precautions for return were stressed. All questions today were answered. OB Disposition: home
[2021-01-13 14:15] LABS: Amorphous Sediment Urine 1+; Bacteria Urine Few (2-10); Culture Indicated Urine Specimen Cultured; Squamous Epithelial Cell Urine 1-5 /HPF (0-5/HPF); WBC Urine 1-5/HPF (0-5/HPF)
== END 2021-01-13 14:31 | disposition home or self-care (01) ==
PROVIDERS: Admitting Provider Obstetrics & Gynecology; PCP Nurse Practitioner Family; Referring Provider Obstetrics & Gynecology; Visit Provider Obstetrics & Gynecology
DX: O20.9 Hemorrhage in early pregnancy, unspecified (principal); R10.30 Lower abdominal pain, unspecified; Z3A.22 22 weeks gestation of pregnancy
CPT/HCPCS: 59050; 76815; 81001; 87077; 87086; G0378; G0379

== ENCOUNTER → 2021-02-22 09:34 | Outpatient (CLI) | payer OTHER, SELFPAY ==
[2021-02-22 11:06] LABS: Hematocrit 33.7 % (36-46); Hemoglobin 11.7 g/dL (12.0-16.0)
[2021-02-22 11:41] LABS: GTT (PREG) 1 Hour PP 50gm Dose 85 mg/dL (76-139)
== END ==
PROVIDERS: PCP Nurse Practitioner Family; Referring Provider Obstetrics & Gynecology; Visit Provider Obstetrics & Gynecology
DX: Z34.82 Encounter for supervision of other normal pregnancy, second trimester (principal); Z3A.26 26 weeks gestation of pregnancy
CPT/HCPCS: 36415; 82950; 85014; 85018

== ENCOUNTER 2021-03-04 15:19 | Observation (INO) | payer OTHER, SELFPAY ==
--- NOTE | 2021-03-04 17:50 | P.TNLD_ITS ---
Visit Information Visit Information Date of evaluation: 03/04/21 Primary OB Provider: Marcy Hein Reason for Evaluation: Yes non-stress test Comments/Additional reasons for admission: Patient presents at 29 weeks for recommended weekly testing for complicated by maternal cardiac disease. Patient followed by [facility]. Vital Signs Vital Signs: 94/55, heart rate 77 PFSH Medical History Chicken pox (~1998) Frequent UTI (~2013) Heart murmur (~2018) Kidney infection Vaginal bleeding during , antepartum Vaginal delivery (~12/17/19) Surgical History H/O wisdom tooth extraction (~09/30/20) Family History Mother Mitral valve prolapse Left ventricular cardiac abnormality Grandfather Alcoholic Grandfather Alcoholic Sister Twin Father No problems noted. Grandmother Hypertension Grandmother No problems noted. 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.) current occupational exposures/hazards: No special elicia needs: No seatbelt use: always Smoking Status: Never smoker second hand exposure: No alcohol intake: former (Non : 1 glass wine about 3 times a week.) substance use type: does not use during the past year weight has: decreased > 10 lbs ( ) well-balanced diet: daily or most days caffeine: No Type(s) of exercise: walking (Normally 3 miles a day walking, not with cold/rainy weather.) Evaluation Evaluation Baseline heart rate: 135 Variability: Moderate (11-25) monitor accelerations: Present Monitor Decelerations: Absent Category of Tracing: Reactive Status: Category l Diagnosis, Plan/Disposition Plan/Disposition Plan: Home with scheduled precautions. OB Disposition: home
== END 2021-03-04 16:10 | disposition home or self-care (01) ==
PROVIDERS: Admitting Provider Obstetrics & Gynecology; PCP Nurse Practitioner Family; Referring Provider Obstetrics & Gynecology; Visit Provider Obstetrics & Gynecology
DX: O99.413 Diseases of the circulatory system complicating pregnancy, third trimester (principal); I34.1 Nonrheumatic mitral (valve) prolapse; Z3A.29 29 weeks gestation of pregnancy
CPT/HCPCS: 59025; G0378; G0379

== ENCOUNTER 2021-03-12 14:07 | Outpatient (CLI) | payer OTHER, SELFPAY | END 2021-03-12 14:43 | disposition home or self-care (01) | LOC: LABOR 14:28 → OB 03-15 07:45 | PROVIDERS: PCP Nurse Practitioner Family; Referring Provider Family Medicine; Visit Provider Family Medicine | DX: O99.413 Diseases of the circulatory system complicating pregnancy, third trimester (principal); I34.1 Nonrheumatic mitral (valve) prolapse; Z3A.30 30 weeks gestation of pregnancy | CPT/HCPCS: 59025; G0378; G0379 ==

== ENCOUNTER 2021-03-18 16:34 | Outpatient (CLI) | payer OTHER, SELFPAY | END 2021-03-18 17:20 | disposition home or self-care (01) | LOC: LABOR 17:08 → OB 03-21 09:49 | PROVIDERS: PCP Nurse Practitioner Family; Referring Provider Obstetrics & Gynecology; Visit Provider Obstetrics & Gynecology | DX: O99.413 Diseases of the circulatory system complicating pregnancy, third trimester (principal); Z3A.31 31 weeks gestation of pregnancy | CPT/HCPCS: 59025; G0378; G0379 ==

== ENCOUNTER 2021-04-01 13:47 | Outpatient (CLI) | payer OTHER, SELFPAY ==
--- NOTE | 2021-04-02 14:10 | P.TNLD_ITS ---
Visit Information Visit Information Date of evaluation: 04/01/21 Primary OB Provider: Marcy Hein Reason for Evaluation: Yes non-stress test Comments/Additional reasons for admission: This patient presents for a scheduled NST due to maternal cardiac complications. No obstetrical complaints. Vital Signs Vital Signs: Vital signs stable. [facility] Medical History Chicken pox (~1998) Frequent UTI (~2013) Heart murmur (~2018) Kidney infection Vaginal bleeding during , antepartum Vaginal delivery (~12/17/19) Surgical History H/O wisdom tooth extraction (~09/30/20) Family History Mother Mitral valve prolapse Left ventricular cardiac abnormality Grandfather Alcoholic Grandfather Alcoholic Sister Twin Father No problems noted. Grandmother Hypertension Grandmother No problems noted. 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.) current occupational exposures/hazards: No special elicia needs: No seatbelt use: always Smoking Status: Never smoker second hand exposure: No alcohol intake: former (Non : 1 glass wine about 3 times a week.) substance use type: does not use during the past year weight has: decreased > 10 lbs ( ) well-balanced diet: daily or most days caffeine: No Type(s) of exercise: walking (Normally 3 miles a day walking, not with cold/rainy weather.) Evaluation Evaluation Baseline heart rate: 130 Variability: Moderate (11-25) monitor accelerations: Present Monitor Decelerations: Absent Category of Tracing: Reactive Status: Category l Diagnosis, Plan/Disposition Plan/Disposition Plan: To clinic for planned BPP OB Disposition: other
== END 2021-04-01 14:45 | disposition home or self-care (01) ==
LOC: LABOR 13:56 → OB 04-04 08:04
PROVIDERS: PCP Nurse Practitioner Family; Referring Provider Obstetrics & Gynecology; Visit Provider Obstetrics & Gynecology
DX: O99.413 Diseases of the circulatory system complicating pregnancy, third trimester (principal); Z3A.33 33 weeks gestation of pregnancy; I34.1 Nonrheumatic mitral (valve) prolapse
CPT/HCPCS: 59025; G0378; G0379

== ENCOUNTER → 2021-04-08 12:44 | Outpatient (CLI) | payer OTHER, SELFPAY ==
--- NOTE | 2021-04-08 12:45 | DI.US.S_ITS ---
PROCEDURE: US OB BIOPHYSICAL PROFILE INDICATIONS: BPP OUTSIDE/PRIOR DATING DATA: First dating scan (date and location): 10/11/2020 . Estimated date of delivery (SURY) from first dating scan: 05/12/2021 TECHNIQUE: Real-time scanning was performed of the fetus, with image documentation and biometric measurements. Biophysical profile was also obtained. Endovaginal scanning: No COMPARISON: [facility], OB BIOPHYSICAL PROFILE, 12/12/2019, 8:56. FINDINGS: General: A single living intrauterine gestation is present. Presentation: Vertex. Placenta: Placental position is posterior , without previa. Amniotic fluid index: 14.4 cm, normal range is 5-24 cm. heart rate: 144 beats per minute. Maternal cervical canal: 3.8 cm long. Normal lower limit is 2.5 cm. Biophysical profile: Tone: 2 points. Movement: 2 points. Respiration: 2 points. Largest pocket of fluid: 2 points. Umbilical artery Doppler: Not obtained. IMPRESSION: Normal biophysical profile score of 8/8 possible points. Dictated by: Reese Yousif [facility] Interpreted: Cliff Contreras MD on 04/08/2021 at 14:18 Transcribed by: JARED on 04/08/2021 at 14:20 Approved by: Cliff Contreras M.D. on 04/08/2021 at 14:49
== END ==
PROVIDERS: PCP Nurse Practitioner Family; Referring Provider Obstetrics & Gynecology; Visit Provider Obstetrics & Gynecology
DX: O99.419 Diseases of the circulatory system complicating pregnancy, unspecified trimester (principal); I34.1 Nonrheumatic mitral (valve) prolapse
CPT/HCPCS: 76819

== ENCOUNTER → 2021-04-22 13:38 | Outpatient (CLI) | payer OTHER, SELFPAY ==
[2021-04-23 09:58] LABS: Strep Grp B PCR NEG for Grp B Strep
== END ==
PROVIDERS: PCP Nurse Practitioner Family; Visit Provider Obstetrics & Gynecology
DX: Z34.83 Encounter for supervision of other normal pregnancy, third trimester (principal); Z3A.36 36 weeks gestation of pregnancy
CPT/HCPCS: 87653

== ENCOUNTER 2021-04-22 14:03 | Outpatient (CLI) | payer OTHER, SELFPAY | END 2021-04-22 15:10 | disposition home or self-care (01) | LOC: LABOR 14:33 → OB 04-25 13:31 | PROVIDERS: PCP Nurse Practitioner Family; Referring Provider Obstetrics & Gynecology; Visit Provider Obstetrics & Gynecology | DX: O99.413 Diseases of the circulatory system complicating pregnancy, third trimester (principal); I34.1 Nonrheumatic mitral (valve) prolapse; Z3A.36 36 weeks gestation of pregnancy | CPT/HCPCS: 59025; 87653; G0378; G0379 ==

== ENCOUNTER 2021-04-28 07:04 | Outpatient (CLI) | payer OTHER, SELFPAY ==
--- NOTE | 2021-04-28 07:45 | PM.OBTRLD ---
Visit Information Visit Information Date of evaluation: 04/28/21 Primary OB Provider: Marcy Hein On-call OB Provider: Kalani Scruggs Reason for Evaluation: Yes rule out labor Vital Signs Vital Signs: Blood pressure 107/60, temperature 36.6?, pulse of 70 PFSH Medical History Chicken pox (~1998) Frequent UTI (~2013) Heart murmur (~2018) Kidney infection Vaginal bleeding during , antepartum Vaginal delivery (~12/17/19) Surgical History H/O wisdom tooth extraction (~09/30/20) Family History Mother Mitral valve prolapse Left ventricular cardiac abnormality Grandfather Alcoholic Grandfather Alcoholic Sister Twin Father No problems noted. Grandmother Hypertension Grandmother No problems noted. 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 Patient has lost her mucus plug. Good movement. No leakage of fluid. No headaches, scotomata, epigastric pain. Exam Vital Signs (past 8 hours): Blood pressure 107/60, temperature 36.6?, pulse 70 Narrative Exam Narrative: Abdomen is soft, nontender. Extremities without edema and nontender Evaluation Evaluation Baseline heart rate: 135 Variability: Moderate (11-25) monitor accelerations: Present Monitor Decelerations: Absent Contraction Frequency (minutes): 5 Uterine Contraction Intensity: Mild Category of Tracing: Reactive Status: Category l Cervical dilation (cm): 1 Cervical effacement (%): 80 station: -2 Diagnosis, Plan/Disposition Final Diagnosis (1) Premature labor after 22 weeks, but before 37 completed weeks of gestation without delivery: Status: Acute (2) 36 weeks gestation of : Status: Acute Plan/Disposition Plan: Patient with contractions and change in cervix from previous exam. Patient is scheduled to be delivered at the [facility] due to cardiac anomaly. Patient was given options ambulance transport to the [facility] or driving. They decided that they would drive to [place]. OB Disposition: other (Patient is planning to present to the [facility].)
== END 2021-04-28 08:02 | disposition home or self-care (01) ==
LOC: LABOR 09:16 → OB 05-04 15:02
PROVIDERS: PCP Nurse Practitioner Family; Referring Provider Obstetrics & Gynecology; Visit Provider Obstetrics & Gynecology
DX: O60.03 Preterm labor without delivery, third trimester (principal); O35.8XX0 Maternal care for other (suspected) fetal abnormality and damage, not applicable or unspecified; Z3A.36 36 weeks gestation of pregnancy
CPT/HCPCS: 59025; G0378; G0379